=== PATIENT | male | born 1970 | race Caucasian/White ===

== ENCOUNTER 2016-12-05 12:24 | Inpatient (IN) | payer SELFPAY ==
[~2016-12-05] VITALS: Ht 177.8 cm; Wt 125.0 kg
[2016-12-05] MEDS ORDERED: GADODIAMIDE PF 287 MG/ML 20 ML VIAL (for RAD MRI) IVCONTRAST ONE (12:25)
[2016-12-05 12:38] VITALS: BP 166/97; PULSE 108; RESP 18; TEMP 98.4; O2SAT 97
[2016-12-05] MEDS ORDERED: SODIUM CHLOR 0.9% 1000 ML INJ 1,000 ML IV SCH (12:38)
[2016-12-05] MEDS ORDERED: AMLO5TAB2 PO (12:43)
[2016-12-05] MEDS ORDERED: HYDROmorphone HCL PF 1 MG/ML VIAL IVS ONE (12:45)
[2016-12-05] MEDS ORDERED: DEXAMETHASONE SOD PHOS 20 MG/5 ML VIAL IV PUSH ONE (12:45)
[2016-12-05] MEDS ORDERED: ONDANSETRON HCL 4 MG/2 ML VIAL IVP ONE (12:45)
[2016-12-05] MEDS ORDERED: SODIUM CHLORIDE 0.9% FLUSH 10 ML FLUSH IV FLUSH PRN ×2 (12:45→16:45)
[2016-12-05 13:06] LABS: AUTOMATED NEUTROPHIL # 2.6 TH/MM3 (1.8-7.7); BASOPHIL # 0.1 TH/MM3 (0-0.2); BASOPHIL % 1.2 % (0.0-2.0); EOSINOPHIL # 0.4 TH/MM3 (0-0.4); EOSINOPHIL % 7.2 % (0.0-4.0); HEMATOCRIT 46.6 % (39.0-51.0); HEMO FLAGS DIFF FINAL; LYMPHOCYTE # 1.6 TH/MM3 (1.0-4.8); MEAN CELL VOLUME 92.1 FL (80.0-100.0); MEAN CORPUSCULAR HEMOGLOBIN 32.3 PG (27.0-34.0); MEAN CORPUSCULAR HGB CONC 35.1 % (32.0-36.0); NEUT % 51.6 % (16.0-70.0); PLATELET COUNT 169 TH/MM3 (150-450); RED BLOOD COUNT 5.06 MIL/MM3 (4.50-5.90); RED CELL DISTRIBUTION WIDTH 13.1 % (11.6-17.2)
--- NOTE | 2016-12-05 13:11 | PD ---
HPI Chief Complaint: Back/ Neck Pain or Injury Time Seen by Provider: 12:30 Travel History International Travel<30 days: No Contact w/Intl Traveler<30days: No Traveled to known affect area: No History of Present Illness HPI Patient is a 46-year-old male who presents to emergency room complaints of right -sided lower back pain with numbness and tingling that his right leg. Patient reports that he has chronic low back pain, he has had multiple surgeries to his low back. Patient reports that in 1999, he suffered from cauda equina and had back surgery at that time. Patient reports that he had back surgery (laminectomy) again in June 2007 due to severe back pain. Reports that he another back surgery (at the [facility] in [facility]) to his L4-L5 to S1 in June 22, 2016 and ultimately suffered discitis as well as osteomyelitis to his back after his surgery. He was discharged in August 2016 after treatment with antibiotics. Patient reports that his surgeries were performed in [facility], he has not follow-up with his physician after his surgeries as he does not have insurance. Patient reports that he borrowed a motorcycle from his friend, he is here in [facility] for bike week. Reports that after multiple times of loading and unloading his bike, he developed severe lower back pain. Patient denies any incontinence of urine or bowel, reports that he is having to his sensation and noticed that his right lower extremity. Patient denies any fall or trauma to his back. Patient with no fevers or chills, denies IV drug abuse. [facility] Past Medical History Narrative Medical chronic lumbar pain, discitis, osteomyelitis, cauda equina Hypertension: Yes Tetanus Vaccination: < 5 Years Past Surgical History Narrative Surgical 3 back surgeries for cauda equina, chronic low back pain. lumbar laminectomy, discitis and osteomyelitis of lumbar spine Social History Alcohol Use: Yes (SOCIALLY ) Tobacco Use: Yes Substance Use: No Allergies-Medications (Allergen,Severity, Reaction): Coded Allergies: No Known Allergies (Verified Allergy, Unknown, 12/05/16) Reported Meds & Prescriptions Reported Meds & Active Scripts Active Reported Amlodipine (Amlodipine Besylate) 5 Mg Tab 5 Mg PO DAILY Review of Systems General / Constitutional: No: Fever Eyes: No: Visual changes HENT: No: Headaches Cardiovascular: No: Chest Pain or Discomfort Respiratory: No: Shortness of Breath Gastrointestinal: No: Abdominal Pain Genitourinary: No: Dysuria Musculoskeletal: Positive: Pain (low back) Skin: No Rash Neurologic: No: Weakness Psychiatric: No: Depression Endocrine: No: Polydipsia Hematologic/Lymphatic: No: Easy Bruising Physical Exam Narrative GENERAL: Moderate distress SKIN: Focused skin assessment warm/dry. HEAD: Atraumatic. Normocephalic. EYES: Pupils equal and round. No scleral icterus. No injection or drainage. ENT: No nasal bleeding or discharge. Mucous membranes pink and moist. NECK: Trachea midline. No JVD. CARDIOVASCULAR: Regular rate and rhythm. No murmur appreciated. RESPIRATORY: No accessory muscle use. Clear to auscultation. Breath sounds equal bilaterally. GASTROINTESTINAL: Abdomen soft, non-tender, nondistended. Hepatic and splenic margins not palpable. Patient with no saddle anesthesia MUSCULOSKELETAL: No obvious deformities. No clubbing. No cyanosis. No edema. Patient with right lumbar paraspinal tenderness NEUROLOGICAL: Awake and alert. No obvious cranial nerve deficits. Motor grossly within normal limits. Normal speech. PSYCHIATRIC: Appropriate mood and affect; insight and judgment normal. Data Data Last Documented VS Vital Signs Date Time Temp Pulse Resp B/P (MAP) Pulse Ox O2 Delivery O2 Flow Rate FiO2 12/05/16 15:02 18 98 Room Air 12/05/16 12:38 98.4 108 Orders Orders Basic Metabolic Panel (Bmp) (12/05/16 12:38) Complete Blood Count With Diff (12/05/16 12:38) Prothrombin Time / Inr (Pt) (12/05/16 12:38) Act Partial Throm Time (Ptt) (12/05/16 12:38) Iv Access Insert/Monitor (12/05/16 12:38) Ecg Monitoring (12/05/16 12:38) Oximetry (12/05/16 12:38) Ondansetron Inj (Zofran Inj) (12/05/16 12:45) Sodium Chlor 0.9% 1000 Ml Inj (Ns 1000 M (12/05/16 12:38) Sodium Chloride 0.9% Flush (Ns Flush) (12/05/16 12:45) Hydromorphone Pf Inj (Dilaudid Pf Inj) (12/05/16 12:45) Dexamethasone Inj (Decadron Inj) (12/05/16 12:45) Mri L Spine W&W/O Contrast (12/05/16 ) Drug Screen, Random Urine (12/05/16 13:09) Gadodiamide Pf Inj (Omniscan Pf Inj) (12/05/16 12:25) Ceftriaxone Inj (Rocephin Inj) (12/05/16 16:00) Vancomycin Inj (Vancomycin Inj) (12/05/16 16:00) Hydromorphone Pf Inj (Dilaudid Pf Inj) (12/05/16 16:00) Labs Laboratory Tests Test 12/05/16 12:50 12/05/16 13:50 White Blood Count 5.0 TH/MM3 Red Blood Count 5.06 MIL/MM3 Hemoglobin 16.4 GM/DL Hematocrit 46.6 % Mean Corpuscular Volume 92.1 FL Mean Corpuscular Hemoglobin 32.3 PG Mean Corpuscular Hemoglobin Concent 35.1 % Red Cell Distribution Width 13.1 % Platelet Count 169 TH/MM3 Mean Platelet Volume 7.1 FL Neutrophils (%) (Auto) 51.6 % Lymphocytes (%) (Auto) 32.0 % Monocytes (%) (Auto) 8.0 % Eosinophils (%) (Auto) 7.2 % Basophils (%) (Auto) 1.2 % Neutrophils # (Auto) 2.6 TH/MM3 Lymphocytes # (Auto) 1.6 TH/MM3 Monocytes # (Auto) 0.4 TH/MM3 Eosinophils # (Auto) 0.4 TH/MM3 Basophils # (Auto) 0.1 TH/MM3 CBC Comment DIFF FINAL Differential Comment Prothrombin Time 10.4 SEC Prothromb Time International Ratio 0.9 RATIO Activated Partial Thromboplast Time 26.7 SEC Blood Urea Nitrogen 11 MG/DL Creatinine 0.85 MG/DL Random Glucose 160 MG/DL Calcium Level 8.8 MG/DL Sodium Level 139 MEQ/L Potassium Level 3.9 MEQ/L Chloride Level 107 MEQ/L Carbon Dioxide Level 25.4 MEQ/L Anion Gap 7 MEQ/L Estimat Glomerular Filtration Rate 96 ML/MIN Urine Opiates Screen NEG Urine Barbiturates Screen NEG Urine Amphetamines Screen NEG Urine Benzodiazepines Screen NEG Urine Cocaine Screen NEG Urine Cannabinoids Screen NEG MDM Medical Decision Making Medical Screen Exam Complete: Yes Emergency Medical Condition: Yes Medical Record Reviewed: Yes Interpretation(s) Vital Signs Date Time Temp Pulse Resp B/P (MAP) Pulse Ox O2 Delivery O2 Flow Rate FiO2 12/05/16 12:38 98.4 108 18 166/97 (120) 97 Room Air 12/05/16 12:35 18 Differential Diagnosis Differential includes osteomyelitis, cauda equina, discitis, paraspinal muscle tenderness. Narrative Course 46-year-old male presents to emergency room complaints of low back pain. Patient has showed history of osteomyelitis, cauda equina, osteomyelitis to his lumbar spine, reports that he has exacerbation of his low back pain from putting his motorcycle onto and off of his truck. MRI of the L-spine with and without contrast ordered. Patient was placed on a environmental monitoring specialist, blood work as well as IV pain medications ordered. CBC & BMP Diagram 12/05/16 12:50 Calcium Level 8.8 Last Impressions Lumbar Spine MRI 12/05/16 0000 Signed Impressions: Service Date/Time: Wednesday, December 05, 2016 14:11 - CONCLUSION: 1. MRI findings consistent with L4-L5 discitis and possible early osteomyelitis of the inferior endplate of L4 anteriorly. There is abnormal signal within the anterior epidural space likely related to phlegmon. No overt abscess is currently observed. Abnormal signal within the dorsal soft tissues at this level also observed consistent with cellulitis. 2. Degenerative changes at L4-L5 and L5- S1 as detailed above. Froilan Teran Jr., MD Patient with L4 to L5 discitis of possible early osteomyelitis. Patient was given IV Rocephin as well as IV vancomycin. A call was made to neurosurgery. Plan to admit patient to the hospital. Labs as well as all studies and findings reviewed patient in detail. Patient agreeable to admission to the hospital. Dr. Vivar will see patient in consult Case reviewed with Dr. Encinas who accepts pt to service Critical Care Narrative Aggregate critical care time was 30 minutes. Time to perform other separately billable procedures was not included in the critical care time. My time did not include minutes spent treating any other patients simultaneously or on activities that did not directly contribute to the patient's treatment. The services I provided to this patient were to treat and/or prevent clinically significant deterioration that could result in: , decompensation, deterioration I provided critical care services requiring my management, as noted below: Chart data review, documentation time, medication orders and management, vital sign assessments/reviewing monitor data, ordering and reviewing lab tests, ordering and interpreting/reviewing x-rays and diagnostic studies, care of the patient and discussion of the patient with the admitting physicians. Diagnosis Primary Impression: Discitis of lumbosacral region Additional Impression: Osteomyelitis Admitting Information Admitting Physician Requests: Admit Flower Angel DO Dec 05, 2016 13:11
[2016-12-05 13:16] LABS: APTT (PATIENT) 26.7 SEC (24.3-30.1); INTERNATIONAL NORMALIZED RATIO 0.9 RATIO; PROTHROMBIN TIME - PATIENT 10.4 SEC (9.8-11.6)
[2016-12-05 13:39] LABS: BICARBONATE 25.4 MEQ/L (21.0-32.0); POTASSIUM 3.9 MEQ/L (3.5-5.1)
[2016-12-05 15:02] VITALS: RESP 18; O2SAT 98
--- NOTE | 2016-12-05 15:10 | RADRPT ---
EXAM DATE/TIME: 12/05/2016 14:11 [facility] COMPARISON: No previous studies available for comparison. INDICATIONS : Radiculopathy. Low back pain radiating down right leg CONTRAST: 20 cc Omniscan (gadodiamide) IV MEDICAL HISTORY : Hypertension. SURGICAL HISTORY : Discectomy, lumbar. Lumbar laminectomy. ENCOUNTER: Initial ACUITY: 1 day PAIN SCORE: 3/10 LOCATION: Right Paraspinal TECHNIQUE: Multiplanar multisequence MRI of the lumbar spine was performed with and without contrast. FINDINGS: The most caudal appearing lumbar vertebra is numbered as L5. VERTEBRAE: There is elevated T2 signal involving the L4 and L5 vertebral bodies most pronounced paralleling the L4-L5 disc space. No appreciable cortical destruction although the anterior aspect of the inferior pl ate of L4 is not well seen in small areas. There is abnormal signal involving the central canal exten ding from the mid L4 vertebral body to the superior endplate of S1. This involves the anterior and ri ght anterolateral aspect of the central canal. There is abnormal signal involving the dorsal soft tis sues at this level as well. CONUS: Normal level and configuration. POST CONTRAST: Abnormal enhancement involving the dorsal soft tissues at L4-S1 with abnormal enhancement involving t he endplates associated with L4-L5. Abnormal enhancement involving the central canal at L4-S1 with an terior and right anterolateral aspects of the epidural space. No discrete abscess currently seen. T12-L1: The thecal sac has a normal diameter. No evidence of disc bulge or protrusion. The neural foramina are patent bilaterally. L1-L2: The thecal sac has a normal diameter. No evidence of disc bulge or protrusion. The neural foramina are patent bilaterally. L2-L3: The thecal sac has a normal diameter. No evidence of disc bulge or protrusion. The neural foramina are patent bilaterally. L3-L4: The thecal sac has a normal diameter. No evidence of disc bulge or protrusion. The neural foramina are patent bilaterally. L4-L5: Please see above discussion. There is disc space narrowing with disc desiccation. Broad-based disc bu lge. Abnormal signal within the anterior epidural space to the right of midline without a discrete ab scess. Narrowing of the central canal with the intrathecal space measuring 6 mm in anterior to hair blender ior dimension. Moderate facet arthropathy changes. Narrowing of the neural foramina bilaterally with impingement of the right L4 nerve root. No overt impingement on the left. L5-S1: Disc space narrowing with disc desiccation and right posterior lateral disc protrusion that effaces t he right lateral recess and impinges the S1 nerve root. Left lateral recess is patent. Moderate bony hypertrophy of the facets. Narrowing of the neural foramen without overt impingement. CONCLUSION: 1. MRI findings consistent with L4-L5 discitis and possible early osteomyelitis of the inferior endpl ate of L4 anteriorly. There is abnormal signal within the anterior epidural space likely related to p hlegmon. No overt abscess is currently observed. Abnormal signal within the dorsal soft tissues at th is level also observed consistent with cellulitis. 2. Degenerative changes at L4-L5 and L5-S1 as detailed above. Froilan Teran Jr., MD on December 05, 2016 at 15:01 Board Certified Radiologist. This report was verified electronically.
[2016-12-05] MEDS ORDERED: cefTRIAXone INJ 2,000 MG in SODIUM CHLORIDE 0.9% INJ 100 ML IV ONE (16:00)
[2016-12-05] MEDS ORDERED: VANCOMYCIN INJ 1,900 MG in SODIUM CHLORID 0.9% 500 ML INJ 500 ML IV ONE (16:00)
[2016-12-05] MEDS ORDERED: HYDROmorphone HCL PF 1 MG/ML VIAL IV PUSH ONE (16:00)
--- NOTE | 2016-12-05 16:38 | HHI.HP ---
[facility] Primary [facility] Physician Unknown Admission Diagnosis Discitis/osteomyelitis Diagnoses: Chief Complaint: Increasing low back pain Travel History International Travel<30 Days: No Contact w/Intl Traveler <30 Da: No Traveled to Known Affected Are: No History of Present Illness Written by Alber Dixon, acting as scribe for Dr. Encinas on 12/05/16 at 16: 38. Patient is a 46-year-old male with primary medical history of HTN, multiple back surgeries who came into the hospital for evaluation of increasing lumbar pain. Patient is visiting from [place] for [place]. States he's been lifting bikes with his friend and he developed severe lower back pain. Patient states he had multiple surgeries in his back, last one was done 06/22/2016. However in the month of July he was diagnosed with discitis, osteomyelitis and was placed on vancomycin IV which he states he completed in 6 weeks. States he moved to [place] with his daughter and when he came back in [place] post vancomycin infusion they said that his MRI was okay and he is cleared of infection. He was in severe pain needing IV Dilaudid. Back pain is rated 7/10, radiating towards legs, aggravated by movement, relieved by pain medication. Patient states that he has numbness on the outer lateral right leg that has been a chronic problem. He has not noticed that the numbness has increased even with his lumbar pain. Denies bowel or bladder incontinence. Denies pain and discomfort. Denies SOB/ dyspnea. Denies chest pain, palpitations, headaches, dizziness. Denies fevers, chills, n/v/d. Review of Systems Except as stated in HPI: all other systems reviewed are Neg Past Family Social History Past Medical History Chronic lumbar pain Discitis, osteomyelitis related to surgical intervention HTN Cauda Equina in 1999 Past Surgical History Lumbar surgeries L4, L5, S1 3, last one 06/22/2016 Inguinal hernia, left Inguinal hernia, right 07/2016 Reported Medications Reported Meds & Active Scripts Active Reported Amlodipine (Amlodipine Besylate) 5 Mg Tab 5 Mg PO DAILY Allergies: Coded Allergies: No Known Allergies (Verified Allergy, Unknown, 12/05/16) Active Ordered Medications Current Medications Medications (Trade) Dose Ordered Sig/Betsy Route Start Time Stop Time Status Last Admin (NS Flush) 2 ml UNSCH PRN IV FLUSH 12/05/16 12:45 Vancomycin HCl 1900 mg/Sodium Chloride 519 ml @ 250 mls/hr ONCE ONCE IV 12/05/16 16:00 12/05/16 18:04 Family History Patient is adopted does not know biological family medical history Social History Occasional alcohol use Current day smoker, 1 pack per day 25 years Smokes "weed" Physical Exam Vital Signs Vital Signs Date Time Temp Pulse Resp B/P (MAP) Pulse Ox O2 Delivery O2 Flow Rate FiO2 12/05/16 15:02 18 98 Room Air 12/05/16 12:38 98.4 108 18 166/97 (120) 97 Room Air 12/05/16 12:35 18 Physical Exam GENERAL: This is an obese, well-developed patient, in no apparent distress. SKIN: Warm and dry. HEAD: Normocephalic. EYES: Pupils equal round and reactive. Extraocular motions intact. No scleral icterus. No injection or drainage. ENT: Nose without bleeding. Throat without erythema. Uvula midline. Airway patent. NECK: Trachea midline. No JVD or lymphadenopathy. Supple, nontender, no meningeal signs. CARDIOVASCULAR: Regular rate and rhythm without murmurs, gallops, or rubs. RESPIRATORY: Clear to auscultation. Breath sounds equal bilaterally. No wheezes , rales, or rhonchi. GASTROINTESTINAL: Abdomen soft, non-tender, obese. Bowel sounds active 4. No guarding. MUSCULOSKELETAL: Extremities without clubbing, cyanosis, or edema. NEUROLOGICAL: Awake and alert. Cranial nerves II through XII intact. Motor and sensory grossly within normal limits. Normal speech. Laboratory Laboratory Tests Test 12/05/16 12:50 12/05/16 13:50 White Blood Count 5.0 Red Blood Count 5.06 Hemoglobin 16.4 Hematocrit 46.6 Mean Corpuscular Volume 92.1 Mean Corpuscular Hemoglobin 32.3 Mean Corpuscular Hemoglobin Concent 35.1 Red Cell Distribution Width 13.1 Platelet Count 169 Mean Platelet Volume 7.1 Neutrophils (%) (Auto) 51.6 Lymphocytes (%) (Auto) 32.0 Monocytes (%) (Auto) 8.0 Eosinophils (%) (Auto) 7.2 Basophils (%) (Auto) 1.2 Neutrophils # (Auto) 2.6 Lymphocytes # (Auto) 1.6 Monocytes # (Auto) 0.4 Eosinophils # (Auto) 0.4 Basophils # (Auto) 0.1 CBC Comment DIFF FINAL Differential Comment Prothrombin Time 10.4 Prothromb Time International Ratio 0.9 Activated Partial Thromboplast Time 26.7 Blood Urea Nitrogen 11 Creatinine 0.85 Random Glucose 160 Calcium Level 8.8 Sodium Level 139 Potassium Level 3.9 Chloride Level 107 Carbon Dioxide Level 25.4 Anion Gap 7 Estimat Glomerular Filtration Rate 96 Urine Opiates Screen NEG Urine Barbiturates Screen NEG Urine Amphetamines Screen NEG Urine Benzodiazepines Screen NEG Urine Cocaine Screen NEG Urine Cannabinoids Screen NEG Result Diagram: 12/05/16 1250 12/05/16 1250 Imaging Last Impressions Lumbar Spine MRI 12/05/16 0000 Signed Impressions: Service Date/Time: Wednesday, December 05, 2016 14:11 - CONCLUSION: 1. MRI findings consistent with L4-L5 discitis and possible early osteomyelitis of the inferior endplate of L4 anteriorly. There is abnormal signal within the anterior epidural space likely related to phlegmon. No overt abscess is currently observed. Abnormal signal within the dorsal soft tissues at this level also observed consistent with cellulitis. 2. Degenerative changes at L4-L5 and L5- S1 as detailed above. MD Eder North Jr.i VTE Risk Assessment Caprini VTE Risk Assessment: Mod/High Risk (score >= 2) Caprini Risk Assessment Model Point Value = 1 Point Value = 2 Point Value = 3 Point Value = 5 Age 41-60 Minor surgery BMI > 25 kg/m2 Swollen legs Varicose veins or History of unexplained or recurrent spontaneous Oral contraceptives or hormone replacement Sepsis (< 1 month) Serious lung disease, including pneumonia (< 1 month) Abnormal pulmonary function Acute myocardial infarction Congestive heart failure (< 1 month) History of inflammatory bowel disease Medical patient at bed rest Age 61-74 Arthroscopic surgery Major open surgery (> 45 min) Laparoscopic surgery (> 45 min) Malignancy Confined to bed (> 72 hours) Immobilizing plaster cast Central venous access Age >= 75 History of VTE Family history of VTE Factor V Leiden Prothrombin [id number] Lupus anticoagulant Anticardiolipin antibodies Elevated serum homocysteine Heparin-induced thrombocytopenia Other congenital or acquired thrombophilia Stroke (< 1 month) Elective arthroplasty Hip, pelvis, or leg fracture Acute spinal cord injury (< 1 month) Prophylaxis Regimen Total Risk Factor Score Risk Level Prophylaxis Regimen 0-1 Low Early ambulation 2 Moderate Order ONE of the following: *Sequential Compression Device (SCD) *Heparin 5000 units SQ BID 3-4 Higher Order ONE of the following medications: *Heparin 5000 units SQ TID *Enoxaparin/Lovenox 40 mg SQ daily (WT < 150 kg, CrCl > 30 mL/min) *Enoxaparin/Lovenox 30 mg SQ daily (WT < 150 kg, CrCl > 10-29 mL/min) *Enoxaparin/Lovenox 30 mg SQ BID (WT < 150 kg, CrCl > 30 mL/min) AND/OR *Sequential Compression Device (SCD) 5 or more Highest Order ONE of the following medications: *Heparin 5000 units SQ TID (Preferred with Epidurals) *Enoxaparin/Lovenox 40 mg SQ daily (WT < 150 kg, CrCl > 30 mL/min) *Enoxaparin/Lovenox 30 mg SQ daily (WT < 150 kg, CrCl > 10-29 mL/min) *Enoxaparin/Lovenox 30 mg SQ BID (WT < 150 kg, CrCl > 30 mL/min) AND *Sequential Compression Device (SCD) Assessment and Plan Problem List: (1) Discitis of lumbosacral region ICD Code: M46.47 - Discitis, unspecified, lumbosacral region Status: Acute (2) Osteomyelitis ICD Code: M86.9 - Osteomyelitis, unspecified Status: Acute (3) HTN (hypertension) ICD Code: I10 - Essential (primary) hypertension Status: Chronic Assessment and Plan Patient is a 46-year-old male with primary medical history of HTN, multiple back surgeries who came into the hospital for evaluation of increasing lumbar pain. Patient is [facility] [place] [facility]. Discitis, osteomyelitis lumbosacral region History multiple lumbar surgeries, history of discitis/osteomyelitis - Was also diagnosed with discitis/osteomyelitis post surgery and was placed on IV Vancomycin [id number] in [place], states he completed treatment. - MRI lumbar spine showed 1. MRI findings consistent with L4 to L5 discitis and possible early ulcer myelitis of the inferior endplate of L4 and anteriorly. There is abnormal signal within the and anterior epidural space likely related to phlegmon. No overt abscess is currently observed. Abnormal signal within the dorsal soft tissues at this level also observed consistent with cellulitis. 2. Degenerative changes at L4 to L5 and L5 to S1 as detailed above. - IV antibiotics ceftriaxone was given in the ED, Decadron 10 mg was also given in the ED - Hold off on antibiotics for now. Patient does not have leukocytosis does not appear to be with sepsis. May possibly need lumbar biopsy. - Consult neurosurgery for further recommendations - Consult infectious disease for further recommendations - IV Dilaudid for breakthrough pain, Rozet PRN. Bowel regimen started. - Follow up labs in a.m. HTN, chronic - Elevated BP - Restart home medication norvasc 5 mg daily - Monitor BP trend DVT prop lovenox Code Status Full code Discussed Condition With Patient, nursing, Dr. Angel This note was transcribed by [email or web address] [Alber Dixon]. I, Dr. Skye Encinas personally performed the history, physical exam, and medical decision making; and confirmed the accuracy of the information in the transcribed note. Authenticated by Dr. Skye Encinas on 12/05/16 at 16:38 Physician Certification 2 Midnight Certification Type: Admission for Inpatient Services Order for Inpatient Services The services are ordered in accordance with Medicare regulations or non- Medicare payer requirements, as applicable. In the case of services not specified as inpatient-only, they are appropriately provided as inpatient services in accordance with the 2-midnight benchmark. Estimated LOS (days): 2 days is the estimated time the patient will need to remain in the hospital, assuming treatment plan goals are met and no additional complications. Post-Hospital Plan: Home Alber Iverson Dec 05, 2016 16:38 Skye Encinas MD Dec 05, 2016 16:42
[2016-12-05] MEDS ORDERED: MAGNESIUM HYDROXIDE SUSP 30 ML CUP PO PRN (16:45)
[2016-12-05] MEDS ORDERED: ACETAMINOPHEN/HYDROcodone 325 MG/5 MG TAB PO PRN (16:45)
[2016-12-05] MEDS ORDERED: ACETAMINOPHEN 325 MG TAB PO PRN (16:45)
[2016-12-05] MEDS ORDERED: HYDROmorphone HCL PF 1 MG/ML VIAL IV PUSH PRN (16:45)
[2016-12-05] MEDS ORDERED: SENNOSIDES 8.6 MG TAB PO PRN (16:45)
[2016-12-05] MEDS ORDERED: NALOXONE HCL 0.4 MG/ML AMP IV PUSH PRN (16:45)
[2016-12-05] MEDS ORDERED: BISACODYL 10 MG SUPP RECTAL PRN (16:45)
[2016-12-05] MEDS ORDERED: ONDANSETRON HCL 4 MG/2 ML VIAL IVP PRN (16:45)
[2016-12-05] MEDS ORDERED: LACTULOSE SYRUP 20 GM/30 ML CUP PO PRN (16:45)
[2016-12-05] MEDS ORDERED: HYDROmorphone HCL PF 0.5 MG/0.5 ML SYRINGE IV PRN ×2 (17:30)
--- NOTE | 2016-12-05 19:06 | PD.CONS ---
History of Present Illness Service Neurosurgery Consult Requested By Medicine service Reason for Consult Exacerbation low back pain. History of lumbar discitis Primary Care Physician Unknown Diagnoses: History of Present Illness Mr. Schwartz is a pleasant 46-year-old gentleman who gives a history of long- standing lumbar spine problems. He states that he developed significant back pain as well as lower extremity deficit with apparent cauda equina syndrome in 1999 and underwent a lumbar laminectomy. He experienced significant progression of low back pain in 2007 and underwent a second lumbar laminectomy. He continued to have chronic low back pain but also experienced increasing numbness in the right lower extremity and underwent surgery in [facility] in June 2016. He states that postoperatively he developed a lumbar discitis and was treated with antibiotics for 6 weeks in [facility]. Since then he has continued to have low back pain and numbness in the right lateral thigh. The sensory changes have not progressed recently. However [place] is [place] and states that with loading and unloading his motorcycle several times, he has developed increased back pain. He is not complaining of any pain radiating to the lower extremities. There is no complaint of bowel or bladder dysfunction. There is no change in his right thigh numbness. He states that he came to the emergency room today hoping to get some pain medicine due to the increased back pain. He denies any fevers chills or sweats. He denies any IV drug abuse. Review of Systems Constitutional: DENIES: Fatigue, Fever Eyes: DENIES: Blurred vision, Diplopia Ears, nose, mouth, throat: DENIES: Vertigo, Throat pain Cardiovascular: DENIES: Chest pain Gastrointestinal: DENIES: Abdominal pain, Nausea Musculoskeletal: COMPLAINS OF: Back pain, DENIES: Joint pain, Muscle aches, Neck pain Hematologic/lymphatic: DENIES: Bruising Neurologic: DENIES: Abnormal gait, Headache Psychiatric: DENIES: Confusion Past Family Social History Allergies: Coded Allergies: No Known Allergies (Verified Allergy, Unknown, 12/05/16) Past Medical History Hypertension Chronic low back pain Past Surgical History Lumbar surgery 3 as noted above. Bilateral inguinal hernia repair Reported Medications Reported Meds & Active Scripts Active Reported Amlodipine (Amlodipine Besylate) 5 Mg Tab 5 Mg PO DAILY Social History Smokes a pack of cigarettes per day Occasional alcohol use Occasional marijuana use Denies IV drug use Physical Exam Vital Signs Vital Signs Date Time Temp Pulse Resp B/P (MAP) Pulse Ox O2 Delivery O2 Flow Rate FiO2 12/05/16 15:02 18 98 Room Air 12/05/16 12:38 98.4 108 18 166/97 (120) 97 Room Air 12/05/16 12:35 18 Physical Exam GENERAL: This is a well-nourished, well-developed patient, appears mildly uncomfortable during the examination SKIN: No abrasions, contusion, rash noted. Skin warm and dry. HEAD: Atraumatic. Normocephalic. No temporal or scalp tenderness. EYES: Sclerae are clear and nonicteric ENT: No facial edema or ecchymosis. NECK: Trachea midline. No cervical spine tenderness. CARDIOVASCULAR: Pulse regular RESPIRATORY: Clear nonlabored GASTROINTESTINAL: Abdomen soft, non-tender, nondistended. No hepato-splenomegaly , or palpable masses. No guarding. MUSCULOSKELETAL: Extremities without cyanosis, or edema. No joint tenderness, or edema noted. No calf tenderness. Dorsalis pedis pulses 2+ bilateral NEUROLOGICAL: Awake and alert Oriented X 3 Speech is clear Conversant and appropriate Follow simple commands well Answers questions appropriately Reasonable judgment and insight Recent and remote memory are intact No evidence of anxiety or depression Pupils are equal and reactive to accommodation. Extra-ocular movements, visual worrell to confrontation, facial sensorimotor, tongue, palate, sternocleidomastoid testing, hearing to finger rub testing, and bilateral shoulder shrug are all intact. Sensation is intact to light touch in all extremities except for moderate decrease in the lateral right thigh to light touch. Strength normal major flexion and extension groups all extremities Abiodun's absent bilaterally No ankle clonus Plantar responses absent bilateral Fine motor movements intact upper extremities Laboratory Laboratory Tests Test 12/05/16 12:50 12/05/16 13:50 White Blood Count 5.0 Red Blood Count 5.06 Hemoglobin 16.4 Hematocrit 46.6 Mean Corpuscular Volume 92.1 Mean Corpuscular Hemoglobin 32.3 Mean Corpuscular Hemoglobin Concent 35.1 Red Cell Distribution Width 13.1 Platelet Count 169 Mean Platelet Volume 7.1 Neutrophils (%) (Auto) 51.6 Lymphocytes (%) (Auto) 32.0 Monocytes (%) (Auto) 8.0 Eosinophils (%) (Auto) 7.2 Basophils (%) (Auto) 1.2 Neutrophils # (Auto) 2.6 Lymphocytes # (Auto) 1.6 Monocytes # (Auto) 0.4 Eosinophils # (Auto) 0.4 Basophils # (Auto) 0.1 CBC Comment DIFF FINAL Differential Comment Prothrombin Time 10.4 Prothromb Time International Ratio 0.9 Activated Partial Thromboplast Time 26.7 Blood Urea Nitrogen 11 Creatinine 0.85 Random Glucose 160 Calcium Level 8.8 Sodium Level 139 Potassium Level 3.9 Chloride Level 107 Carbon Dioxide Level 25.4 Anion Gap 7 Estimat Glomerular Filtration Rate 96 Urine Opiates Screen NEG Urine Barbiturates Screen NEG Urine Amphetamines Screen NEG Urine Benzodiazepines Screen NEG Urine Cocaine Screen NEG Urine Cannabinoids Screen NEG Result Diagram: 12/05/16 1250 12/05/16 1250 Imaging 12/05/16 MRI lumbar spine images are reviewed by the undersigned. There is enhancing soft tissue density region anterior to the thecal sac at primarily L4- S1 level. However no definite fluid or abscess collection. Previous right L4-5-S1 laminectomy defects. There is significant enlargement of and enhancement surrounding the exiting right S1 nerve root and to a lesser extent around the right L5 nerve. Signal intensity changes at the L4-5 vertebral bodies and disc space consistent with osteomyelitis. These may represent subacute to chronic changes. Lumbar Spine MRI 12/05/16 0000 Signed Impressions: Service Date/Time: Monday, December 05, 2016 14:11 - CONCLUSION: 1. MRI findings consistent with L4-L5 discitis and possible early osteomyelitis of the inferior endplate of L4 anteriorly. There is abnormal signal within the anterior epidural space likely related to phlegmon. No overt abscess is currently observed. Abnormal signal within the dorsal soft tissues at this level also observed consistent with cellulitis. 2. Degenerative changes at L4-L5 and L5- S1 as detailed above. Froilan Teran Jr., MD Assessment and Plan Assessment and Plan Impression: 1. Chronic low back pain. Recent aggravation of pain without new neurologic deficit. 2. History of L4 5 discitis-osteomyelitis. Recently treated with 6 weeks of antibiotics in [facility] in approximately August 2016. He remains afebrile at this time with no increased white count. Changes on MRI do not necessarily indicate a recurrence of his infection. Recommendations: Treatment options were discussed with the patient. A CT-guided biopsy of the L4 5 disc space can be considered prior to considering initiation of antibiotic treatment. At this point there is not a definite recurrent or residual discitis or osteomyelitis. The patient himself states that he came to the emergency room for pain medication so he can make it back home to [place] where he can follow-up with his back problems. Given the lack of definite recurrent infection or neurologic deficit or cauda equina syndrome and no evidence of spinal instability, it would reasonable to allow the patient to travel home, with the understanding that he can seek immediate treatment once he gets back home on Wednesday. He indicates his agreement to this. If he does wish to stay for treatment, then a CT guided L4 5 disc biopsy can be performed. He may mobilize out of bed as tolerated. A brace is not necessary at this point. Activity precautions including avoidance of heavy lifting have been discussed. Signs and symptoms to watch for been explained. Andrey Vivar MD Dec 05, 2016 19:06
[2016-12-05] MEDS: SODIUM CHLORIDE 0.9% FLUSH 10 ML FLUSH IV FLUSH SCH (20:39)
[2016-12-05] MEDS: ACETAMINOPHEN/HYDROcodone 325 MG/10 MG TAB PO PRN (20:39)
[2016-12-05] MEDS: DOCUSATE SODIUM 50 MG/SENNA 8.6 MG TAB PO SCH (20:39)
[2016-12-05 20:46] VITALS: BP 143/91; PULSE 86; RESP 20; TEMP 98.9; O2SAT 95
[2016-12-05] MEDS: HYDROmorphone HCL PF 0.5 MG/0.5 ML SYRINGE IV PRN (22:57)
[2016-12-06 00:25] VITALS: BP 137/75; PULSE 68; RESP 20; TEMP 97.8; O2SAT 94
[2016-12-06] MEDS: HYDROmorphone HCL PF 0.5 MG/0.5 ML SYRINGE IV PRN (02:59)
[2016-12-06] MEDS: ACETAMINOPHEN/HYDROcodone 325 MG/10 MG TAB PO PRN ×2 (03:28→08:08)
[2016-12-06 05:04] VITALS: BP 113/66; PULSE 60; RESP 20; TEMP 97.7; O2SAT 97
[2016-12-06] MEDS: DOCUSATE SODIUM 50 MG/SENNA 8.6 MG TAB PO SCH (08:08)
[2016-12-06] MEDS: SODIUM CHLORIDE 0.9% FLUSH 10 ML FLUSH IV FLUSH SCH (08:08)
[2016-12-06 08:17] VITALS: BP 126/82; PULSE 61; RESP 20; TEMP 98.1; O2SAT 96
--- NOTE | 2016-12-06 10:57 | HHI.PR ---
Addendum to Inpatient Note Additional Information patient left AMA Condition on discharge: guarded Regular Diet as tolerated Ad Maria C activity Rx written:none Follow-up with primary care physician Skye Encinas MD Dec 06, 2016 10:57
[2016-12-06] MEDS ORDERED: ENOXAPARIN SODIUM 40 MG/0.4 ML SYRINGE SQ SCH (11:00)
== END 2016-12-06 08:30 | disposition left against medical advice (07) | DRG 540 ==
LOC: NEPD 12:24 → NEDA 16:08 → N05B 18:56
PROVIDERS: ADMIT Hospitalist; ATTEND Hospitalist
DX: M46.26 Osteomyelitis of vertebra, lumbar region (principal); G83.4 Cauda equina syndrome; M46.47 Discitis, unspecified, lumbosacral region; G89.29 Other chronic pain; I10 Essential (primary) hypertension; F17.210 Nicotine dependence, cigarettes, uncomplicated; F12.90 Cannabis use, unspecified, uncomplicated
CPT/HCPCS: 72158; 80048; 80307; 82948; 85025; 85610; 85730; 96361; 96374; 96375; J1170; A9579; J0696; J1100; J2405; J7030